=== PATIENT | female | born 1960 | race Caucasian/White ===

== ENCOUNTER 2017-02-25 13:01 | Emergency (ER) | payer OTHER ==
[2017-02-25] MEDS ORDERED: HYDROmorphone HCL 1 MG/ML SYR ONE ×2 (13:19→13:41)
[2017-02-25] MEDS ORDERED: LIDOCAINE/EPI 2% 1:200,000 10 ML VIAL ONE (13:26)
[2017-02-25] MEDS ORDERED: ONDANSETRON HCL 4 MG/2 ML VIAL ONE (13:33)
[2017-02-25] MEDS ORDERED: FENTANYL 250 MCG/5 ML VIAL ONE (13:34)
[2017-02-25] MEDS ORDERED: ACETAMINOPHEN 325 MG TABLET PO ONE ×2 (14:35→14:57)
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
--- NOTE | 2017-02-26 09:42 | RADIOLOGY REPORT ---
HISTORY: Injury with pain. COMPARISON: None. FINDINGS: 2 views of the left elbow obtained. There is an impacted, comminuted radial head fracture with large hemarthrosis. The distal humerus and proximal ulna are grossly intact. Bone mineralization is normal. IMPRESSION: 1. Impacted, comminuted radial head fracture. Final Electronic Signature: This report was electronically signed by Krish Euceda MD on 02/26/2017 9:4 0 AM. sross /
== END 2017-02-25 14:49 | disposition home or self-care (01) ==
LOC: ER 13:01
DX: S52.125A Nondisplaced fracture of head of left radius, initial encounter for closed fracture (principal); S81.012A Laceration without foreign body, left knee, initial encounter; S80.211A Abrasion, right knee, initial encounter; V18.0XXA Pedal cycle driver injured in noncollision transport accident in nontraffic accident, initial encounter; Y92.838 Other recreation area as the place of occurrence of the external cause; Y93.55 Activity, bike riding; Z74.3 Need for continuous supervision
CPT/HCPCS: 12032; 29105; 96374; 99284; A0425; A0427; J1170; J2405